=== PATIENT | female | born 1975 | race Two or more races ===

== ENCOUNTER 2019-01-22 15:55 | Emergency (ER) | payer MEDICAID, OTHER ==
[~2019-01-22] VITALS: Ht 152.4 cm; Wt 69.9 kg
[2019-01-22] MEDS ORDERED: MORPHINE SULFATE 4 MG/ML SYR/VIAL IV PRN (16:45)
[2019-01-22 16:57] LABS: Urine WBC None Seen /hpf (0 - 5)
[2019-01-22] MEDS: SODIUM CHLORIDE 0.9% 500 ML IVB ONE (16:59)
[2019-01-22] MEDS: METOCLOPRAMIDE HCL 5MG/ml INJ 2ml VIAL IV ONE (17:14)
[2019-01-22] MEDS: MORPHINE SULF INJ 2 MG/ML SYRINGE 1ML ONE (17:14)
[2019-01-22] MEDS: SODIUM CHLORIDE 0.9% 1,000 ML IV ONE (17:17)
[2019-01-22] MEDS: MORPHINE SULF INJ 2 MG/ML SYRINGE 1ML IV ONE (17:17)
[2019-01-22 17:27] LABS: Urine Bacteria NONE SEEN /hpf (None Seen); Urine Blood 3+ /uL (Negative); Urine Mucus FEW (None Seen); Urine Specific Gravity 1.025 (1.001-1.035)
[2019-01-22 18:41] LABS: Basophils # (auto) 0.1 uL; Basophils % (auto) 1.2 % (0.0-2.0); Eosinophils # (auto) 0.1 uL; Eosinophils % (auto) 2.1 % (0.0-7.0); Hematocrit 37.5 % (36.0-46.0); Hemoglobin 12.1 g/dL (12.2-16.2); Lymphocytes # (auto) 0.7 uL; Lymphocytes % (auto) 11.6 % (10.0-50.0); Mean Corpuscular Hemoglobin 27.5 pg (28.0-32.0); Mean Corpuscular Hgb Conc. 32.2 g/dL (32.0-36.0); Mean Corpuscular Volume 85.4 fL (80.0-100.0); Monocytes # (auto) 0.5 uL; Monocytes % (auto) 9.1 % (0.0-12.0); Neutrophils # (auto) 4.4 uL; Platelet Count (auto) 290 10^3/uL (140-450); Red Blood Cells 4.39 10^6/uL (4.0-5.20); White Blood Cell 5.8 10^3/uL (4.4-10.8)
[2019-01-22 18:44] LABS: Red Cell Distribution Width 27.6 % (11.8-14.3)
[2019-01-22 19:19] LABS: Anion Gap 13 (5-15); BUN/Creatinine Ratio 9.8; Blood Urea Nitrogen 5 mg/dL (7-18); Calcium 7.8 mg/dL (8.5-10.1); Carbon Dioxide 17 mmol/L (21-32); Chloride 112 mmol/L (98-107); GFR African American 168 mL/min; GFR Non-African American 139 mL/min; Glucose 151 mg/dL (74-106); Sodium 142 mmol/L (136-145)
[2019-01-22 19:24] LABS: Alanine Aminotransferase 58 U/L (13-56); Alkaline Phosphatase 95 U/L (45-117); Aspartate Aminotransferase 98 U/L (15-37); Bilirubin, Total 0.3 mg/dL (0.2-1.0); Total Protein 7.8 g/dL (6.4-8.2)
[2019-01-22 19:43] LABS: Beta HCG, Quantitative < 1 mlU/mL (1-3); Thyroid Stimulating Hormone 2.88 uIU/mL (0.358-3.74)
[2019-01-22 19:54] LABS: INR < 0.93 (0.9-1.15); Partial Thromboplastin Time 27.7 sec (23.64-32.05)
[2019-01-22 19:56] LABS: Magnesium 2.3 mg/dL (1.6-2.6)
[2019-01-22] MEDS: LORazepam 2MG/ML-1ML VIAL IV ONE ×2 (21:04→23:51)
[2019-01-22] MEDS: FOLIC ACID 1 MG, MULTIPLE VITAMIN 10 ML, MAGNESIUM SULF SDV 50% 8 MEQ, THIAMINE INJ 100... INJ ONE ×5 (21:40)
[2019-01-22 23:28] LABS: Amphetamine Screen, Urine NEGATIVE (NEGATIVE); Barbiturate Scree,Urine NEGATIVE (NEGATIVE); Benzodiazephine Screen, Urine NEGATIVE (NEGATIVE); Cannabinoid Screen, Urine POSITIVE (NEGATIVE); Cocaine Screen, Urine NEGATIVE (NEGATIVE); Opiate Scree,Urine NEGATIVE (NEGATIVE); Phencyclidine Screen, Urine NEGATIVE (NEGATIVE)
[2019-01-23 04:00] VITALS: BP 126/79
== END 2019-01-23 05:50 | disposition home or self-care (01) ==
LOC: ER 15:58
DX: R10.84 Generalized abdominal pain (principal); F12.90 Cannabis use, unspecified, uncomplicated; F10.129 Alcohol abuse with intoxication, unspecified; E86.0 Dehydration; K70.30 Alcoholic cirrhosis of liver without ascites
CPT/HCPCS: 36415; 71045; 74176; 76705; 76830; 76856; 80053; 80307; 81001; 81025; 82150; 83690; 83735; 84443; 84484; 84702; 85025; 85610; 85730; 86850; 86870; 86900; 86901; 86905; 93005; 94761; 96361; 96365; 96375; 96376; 99284; J2060; J2270; J2765; J3411; J3475; J7030

== ENCOUNTER 2020-05-19 02:10 | Emergency (ER) | payer MEDICAID ==
[~2020-05-19] VITALS: Ht 165.1 cm; Wt 34.0 kg
[2020-05-19 02:32] VITALS: BP 111/69
== END 2020-05-19 03:25 | disposition left against medical advice (07) ==
LOC: EDBD 02:10 → ER 02:15
DX: R05 Cough (principal); Z53.21 Procedure and treatment not carried out due to patient leaving prior to being seen by health care provider